=== PATIENT | male | born 1995 | race Two or more races ===

== ENCOUNTER 2024-08-05 07:53 | Emergency (ER) | payer OTHER ==
[~2024-08-05] VITALS: Ht 177.8 cm; Wt 68.9 kg
[2024-08-05] MEDS ORDERED: ACETAMINOPHEN 500 MG GEL..CAP PO ONE ×2 (08:30→08:39)
== END 2024-08-05 11:04 | disposition home or self-care (01) ==
LOC: ER 07:55
DX: S69.81XA Other specified injuries of right wrist, hand and finger(s), initial encounter (principal); S62.009A Unspecified fracture of navicular [scaphoid] bone of unspecified wrist, initial encounter for closed fracture; W19.XXXA Unspecified fall, initial encounter; Y93.89 Activity, other specified; Y92.89 Other specified places as the place of occurrence of the external cause; Y99.8 Other external cause status